=== PATIENT | female | born 1960 | race Caucasian/White ===

== ENCOUNTER → 2018-08-20 11:53 | Outpatient (CLI) | payer OTHER, SELFPAY ==
[2018-08-20 12:40] LABS: Hemoglobin A1C% w Est Avg Glu 6.8 % (4.0-6.0)
[2018-08-20 13:44] LABS: Thyroid Stimulating Hormone 2.68 uIU/mL (0.47-4.68)
== END ==
PROVIDERS: Family Provider Physician Assistant; PCP Physician Assistant; Visit Provider Naturopath
DX: E11.9 Type 2 diabetes mellitus without complications (principal)
CPT/HCPCS: 36415; 83036; 84443

== ENCOUNTER → 2018-11-16 08:21 | Outpatient (CLI) | payer OTHER, SELFPAY ==
[2018-11-16 10:51] LABS: Cholesterol 197 mg/dL (140-199); HDL Cholesterol 64 mg/dL (40-60); LDL Cholesterol Calculated 111 mg/dL (<100); Triglycerides 110 mg/dL (35-150)
[2018-11-16 11:06] LABS: Hemoglobin A1C% w Est Avg Glu 6.3 % (4.0-6.0)
== END ==
PROVIDERS: Visit Provider Naturopath
DX: E11.9 Type 2 diabetes mellitus without complications (principal)
CPT/HCPCS: 36415; 80061; 83036

== ENCOUNTER → 2019-02-18 09:14 | Outpatient (CLI) | payer OTHER, SELFPAY ==
[2019-02-18 10:08] LABS: Cholesterol 190 mg/dL (140-199); HDL Cholesterol 56 mg/dL (40-60); LDL Cholesterol Calculated 117 mg/dL (<100); Triglycerides 86 mg/dL (35-150)
[2019-02-18 10:49] LABS: Hemoglobin A1C% w Est Avg Glu 6.3 % (4.0-6.0)
== END ==
PROVIDERS: PCP Naturopath; Visit Provider Naturopath
DX: E11.9 Type 2 diabetes mellitus without complications (principal); E78.5 Hyperlipidemia, unspecified
CPT/HCPCS: 36415; 80061; 83036

== ENCOUNTER → 2019-10-31 07:07 | Outpatient (CLI) | payer OTHER, BC, SELFPAY ==
[2019-10-31 08:12] LABS: Add Manual Diff / Slide Review NO; Basophils Absolute Auto 100 /uL (0-100); Basophils Percent Auto 0.8 % (0-2); Eosinophils Absolute Auto 100 /uL (0-450); Eosinophils Percent Auto 0.9 % (2-4); Hematocrit 38.9 % (36-46); Hemoglobin 13.8 g/dL (12.0-16.0); Lymphocytes Absolute Auto 2000 /uL (1100-4500); Lymphocytes Percent Auto 26.4 % (25-40); Mean Corpuscular HGB Conc 35.5 % (30-36); Mean Corpuscular Hemoglobin 29.8 PG (26-34); Mean Corpuscular Volume 83.9 fL (80-100); Monocytes Absolute Auto 400 /uL (0-900); Monocytes Percent Auto 4.9 % (3-14); Neutrophils Absolute Auto 5100 /uL (1500-7000); Platelet Count 368 X10^3/uL (150-400); Red Blood Cell Count 4.64 X10^6/uL (4.0-5.2); Red Cell Distribution Width 13.2 % (11.6-14.8); White Blood Cell Count 7.6 X10^3/uL (4.5-11.0)
[2019-10-31 10:15] LABS: Alanine Aminotransferase 23 IU/L (<35); Albumin 4.5 g/dL (3.5-5.0); Albumin Globulin Ratio 1.4 (1.0-2.8); Alkaline Phosphatase 70 U/L (38-126); Aspartate Aminotransferase 30 IU/L (14-36); BUN Creatinine Ratio 27.5 (6-22); Bilirubin Total 0.7 mg/dL (0.2-1.3); Blood Urea Nitrogen 14 mg/dL (7-17); Calcium 9.8 mg/dL (8.4-10.2); Carbon Dioxide 24 mmol/L (22-32); Chloride 103 mmol/L (98-107); Cholesterol 207 mg/dL (140-199); Estimated Glomerular Filt Rate > 60.0 mL/min (>60); Globulin 3.2 g/dL (1.7-4.1); Glucose 152 mg/dL (80-110); HDL Cholesterol 56 mg/dL (40-60); HEMOLYSIS 16 (0-50); LDL Cholesterol Calculated 128 mg/dL (<100); Potassium 4.7 mmol/L (3.4-5.1); Sodium 139 mmol/L (137-145); Total Protein 7.7 g/dL (6.3-8.2); Triglycerides 116 mg/dL (35-150)
== END ==
PROVIDERS: PCP Naturopath; Referring Provider Naturopath; Visit Provider Naturopath
DX: Z00.00 Encounter for general adult medical examination without abnormal findings (principal); E11.9 Type 2 diabetes mellitus without complications; E78.5 Hyperlipidemia, unspecified; I10 Essential (primary) hypertension
CPT/HCPCS: 36415; 80053; 80061; 83036; 85025

== ENCOUNTER → 2019-11-22 10:54 | Outpatient (CLI) | payer OTHER, BC, SELFPAY ==
--- NOTE | 2019-11-22 12:35 | DIET.PN ---
Diabetes Intake: Initial Assessment Assess: Mrs. Khan is a 59 YOF referred for type 2 diabetes. She was diagnosed several years ago, and has tried to manage with low dose oral medication and exercise. Admits she is addicted to sugar, but has been able to maintain a controlled A1c with exercise. She walks 2 mi/day and yard work. Believes her health to be poor due to poor eating habits. She currently does not have a glucometer, but agrees to request a prescription to begin monitoring. She has had some previous diabetes education. Labs: Per pt report: A1c: 7.0 Meds: metformin 1000mg BID Diet: per 24 hr recall: B: 2 pc potato bread w/ pb and honey, oatmeal L: sandwich w/ chips D: protein, veg, potatoes Wt: 192# Ht: 63? BMI: 34 DX: Altered nutrition related laboratory values related to impaired glucose metabolism, lack of previous exposure to nutrition information as evidenced by pt report, diagnosis of diabetes, previous diet high in refined carbohydrates. Intervention: 1. Completed intake assessment. Discussed barriers to care. 2. Discussed pathophysiology of diabetes. Reviewed A1c and its correlation to blood glucose numbers. Discussed recommended BG ranges. 3. Discussed importance of self-monitoring, how often, and when to check. Reviewed use of glucometer. 4. Reviewed hyper/hypoglycemia and treatment. 5. Reviewed safe disposal of equipment (strip/lancets/insulin needles). 6. Created SMART goals for pt self-care and success. 7. Discussed program curriculum outline and class needs based on individual goals. SMART Goals: 1. Pt main goal is to learn how to be able to continue to enjoy her favorite foods with limitations. Monitor/Evaluate: Anticipate good compliance. Pt will attend full DSME program.
== END ==
PROVIDERS: PCP Naturopath; Referring Provider Naturopath; Visit Provider Naturopath
DX: E11.9 Type 2 diabetes mellitus without complications (principal); E66.9 Obesity, unspecified; Z79.84 Long term (current) use of oral hypoglycemic drugs; Z68.34 Body mass index [BMI] 34.0-34.9, adult; Z71.3 Dietary counseling and surveillance
CPT/HCPCS: G0108

== ENCOUNTER → 2019-11-28 10:05 | Outpatient (CLI) | payer OTHER, BC, SELFPAY ==
--- NOTE | 2019-11-28 12:12 | DIET.PN ---
Diabetes Physiology: Intervention 1. Diabetes physiology 2. Detecting and treatment of acute and chronic complications 3. Diagnosis of and difference in types of diabetes 4. Self-monitoring and pattern management a. Demonstrate glucometer and control testing b. Explain BG results and action to take when out of range. 5. Foot , eye, dental care 6. Medications a. Oral medication classification b. Injectable c. Insulin i. Injection protocol ii. Other delivery methods
== END ==
PROVIDERS: PCP Naturopath; Referring Provider Naturopath; Visit Provider Naturopath
DX: E11.9 Type 2 diabetes mellitus without complications (principal); Z71.3 Dietary counseling and surveillance
CPT/HCPCS: G0109

== ENCOUNTER → 2019-12-12 14:16 | Outpatient (CLI) | payer OTHER, BC, SELFPAY ==
--- NOTE | 2019-12-12 16:30 | DIET.PN ---
Diabetes: Healthy Eating 1 Intervention: ? Discussed pathophysiology of diabetes and impact of nutrition/diet on blood sugar control.? Discussed fed versus non-fed state.?? ? Reviewed importance of Balance, Variety, and Moderation. ? Discussed the effect of carbohydrates/protein/fat on blood sugar control.? ? Stressed importance of consistent carbohydrate intake at each meal and provided instructions for recommended servings/portions of carbohydrates/protein per meal. Provided educational material. ? Reviewed carbohydrate counting and measuring carbohydrate content via serving sizes and reading nutrition labels.? Provided handouts.?? ? Discussed the difference between simple versus complex carbohydrates and the effect of fiber on blood sugar control.? Discussed various methods to increase fiber content in diet. ? Discussed the plate method for creating more carbohydrate conscious balanced meals. ? Stressed importance of meal timing and not going >4-5 hours between meals. Encouraged adding protein to evening snack to support glucose control overnight. ? Discussed importance of making dietary habits part of lifestyle change.
== END ==
PROVIDERS: PCP Naturopath; Referring Provider Naturopath; Visit Provider Naturopath
DX: E11.9 Type 2 diabetes mellitus without complications (principal); Z71.3 Dietary counseling and surveillance
CPT/HCPCS: G0109

== ENCOUNTER → 2019-12-21 14:12 | Outpatient (CLI) | payer OTHER, BC, SELFPAY ==
--- NOTE | 2019-12-21 16:29 | DIET.PN ---
Diabetes: Healthy Eating 2 Intervention: Fats effects on glucose, weight, heart disease, cholesterol Sat Vs Unsat Protein- animal and plant based options Low, med, high fat meats Sugar substitutes Sodium Health claims Grocery shopping guidelines Eating away from home Alcohol Sick day guidelines Ketone Testing
== END ==
PROVIDERS: PCP Naturopath; Referring Provider Naturopath; Visit Provider Naturopath
DX: E11.9 Type 2 diabetes mellitus without complications (principal); Z71.3 Dietary counseling and surveillance
CPT/HCPCS: G0109

== ENCOUNTER → 2019-12-29 14:01 | Outpatient (CLI) | payer OTHER, BC, SELFPAY ==
--- NOTE | 2019-12-29 14:05 | DI.US.S_ITS ---
ULTRASOUND OF LEFT AXILLA: 12/29/2019 CLINICAL: Left axilla palpable lump. Comparison is made to exams dated: 01/24/2019 mammogram, 01/21/2018 mammogram, 01/21/2017 mammogram, 01/20/2016 mammogram, and 01/16/2015 mammogram - Breast [facility] ([place]). Color flow and real-time ultrasound of the left axilla were performed on the areas of interest. There is a 3.3 cm x 1.7 cm x 2.1 cm oval fluid collection in the left axillal. This oval fluid collection is hypoechoic but of mixed echogenicity with internal echoes and posterior acoustic enhancement. This correlates as palpated. Color flow imaging demonstrates that there is an adjacent vascularity. IMPRESSION: PROBABLY BENIGN The 3.3 cm x 1.7 cm x 2.1 cm oval fluid collection is consistent with an abscess. Aspiration or drainage are recommended. Findings were reported to Dr. Pérez at the conclusion of the study. Patient was transferred to the emergency room for evaluation with possible incision and drainage. A follow-up ultrasound in 3 months is recommended to exclude an underlying mass. This exam was interpreted at Station ID: [id number]. Electronically Signed By: Jefferson Stark M.D. [email or web address]/:12/29/2019 16:14:13 copy to: CLEMENTE PÉREZ letter sent: Clinical Evaluation Ultrasound BI-RADS: 3 Probably benign
== END ==
PROVIDERS: PCP Naturopath; Referring Provider Naturopath; Visit Provider Naturopath
DX: R22.32 Localized swelling, mass and lump, left upper limb (principal)
CPT/HCPCS: 76882

== ENCOUNTER 2019-12-29 15:27 | Emergency (ER) | payer OTHER, BC, SELFPAY ==
[2019-12-29 15:40] VITALS: BP 134/71; PULSE 75; RESP 18; TEMP 36.4; O2SAT 99; BMI 32.8
--- NOTE | 2019-12-29 18:21 | ED.SKABFB ---
HPI - Skin/Abscess/Foreign Bdy General Chief complaint: Skin/Abscess/Foreign Body Stated complaint: LEFT ARM UNDERNEATH INFECTION Time Seen by Provider: 12/29/19 18:21 Source: patient Mode of arrival: Ambulatory Limitations: no limitations History of Present Illness HPI narrative: 59-year-old woman with diabetes and high blood pressures notice some pain and tenderness in her left axilla. It has been developing over the past 3-4 days. She saw her primary care physician today who ordered an ultrasound. Ultrasound noted an abscess and she was sent to the emergency room for further evaluation. She reports no fevers, chills, cough, nausea, vomiting, diarrhea, abdominal pain, dizziness, syncope. She does note that she has had a similar infection approximately 10 years ago that responded nicely with oral antibiotics. Related Data Previous Rx's Medication Instructions Recorded cephalexin 500 mg PO TID #15 cap 12/29/19 Allergies Allergy/AdvReac Type Severity Reaction Status Date / Time No Known Drug Allergies Allergy Verified 12/29/19 15:40 Review of Systems Review of Systems Narrative: Remainder of review of systems including constitutional, ENT, cardiovascular, respiratory, GI, , musculoskeletal, skin, neurologic and psychiatric systems reviewed and are unremarkable except as noted in HPI. Patient History Medical History Hypertension (Acute) Type 2 diabetes mellitus (Acute) Social History Smoking Status: Never smoker eating out: rarely or never Type(s) of exercise: walking Smoking Status: Never smoker Substance Use Type: does not use Exam Narrative Exam Narrative: General: Healthy appearing, in no acute distress. Able to give a complete and coherent history. Well-nourished well-developed HEENT: Moist mucous membranes, normal sclera with reactive pupils, Neck: supple Chest: No chest wall tenderness. In the left axilla she has an approximately 4 x 5 cm fluctuant abscess with minor erythema superficially without spreading cellulitis. It appears to stem from a hair follicle Respiratory: Lungs are clear to auscultation, no wheezing no rales no rhonchi. Full and symmetrical air movement Cardiac: Regular rate and rhythm no murmurs no bruits Abdomen: Soft nontender good bowel tones, no flank pain Skin: Warm and dry, no rashes, well perfused Neurologic: Grossly neurologically intact with no obvious asymmetries or abnormalities Extremities: No trauma, Psych: Cooperative, appropriate insight and affect Initial Vital Signs Initial Vital Signs: Vital Signs Temperature 97.6 F 12/29/19 15:40 Pulse Rate 75 12/29/19 15:40 Respiratory Rate 18 12/29/19 15:40 Blood Pressure 134/71 12/29/19 15:40 Pulse Oximetry 99 12/29/19 15:40 Procedures Abscess I/D I&D #1: Site: other (Axilla) Side (if applicable): left Amount of anesthesia used (mL): 10 Technique: incised with #11 blade Amount of fluid expressed (mL): 10 Irrigation: Yes Packing used?: iodoform Complications: other (No complications, the there were 2 abscesses that were closed but not necessarily communicating too large pockets were incised with drainage from both.) Course Orders Ordered: ED Orders 12/29/19 19:40 Wound Culture and Gram Stain Stat Discontinued Medications Lidocaine/Sodium Bicarbonate (Buffered Lidocaine 10 Ml Syr) 10 ml INJ NOW ONE Stop: 12/29/19 18:30 Last Admin: 12/29/19 19:19 Dose: 10 ml Documented by: STEFANIA Vital Signs Vital signs: Vital Signs - 8 hr 12/29/19 15:40 Temperature 97.6 F Pulse Rate 75 Respiratory Rate 18 Blood Pressure 134/71 Pulse Oximetry 99 Discharge Plan Departure Patient Disposition: Home Clinical Impression: Abscess of skin or subcutaneous tissue Qualifiers: Site of cutaneous abscess: other site Qualified Code(s): L02.818 - Cutaneous abscess of other sites Instructions: DI for Skin Abscess Activity Restrictions/Additional Instructions: Thank you for coming in today Did have a moderate size abscess in your left axilla. I got approximately 10 cc of pus out of the area. Using 400 mg of ibuprofen (2 ddeq-ovu-yvucanr pills) and 1 Tylenol every 6 hours can be very helpful in controlling pain. You may find that your blood sugars are a bit easier control, sometimes with low-grade infections your sugars will go up. I did leave a small amount of packing in the wound. I would recommend simply pulling it out on Wednesday. You can do this while in the shower to cause the least amount of ?mess? The area was starting to get a bit inflamed and there was a bit of manipulation in getting to the to pockets that seem to be involved. I am going to suggest that he complete a 5 day course of Keflex to prevent any infection and make sure that this abscess heals completely. 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 If you develop fevers, recurrence of swelling at the area, spreading redness from the area or other signs or symptoms of infection or the site not healing, please return to the ER. I wish you well Prescriptions: New cephalexin 500 mg capsule 500 mg PO TID Qty: 15 RF: 0 Referrals: Sonia Yates ND [Primary Care Provider] -
[2019-12-29] MEDS: LIDO 1%/SOD BICARB 8.4% (10ML) 10 ML SYRINGE INJ (19:19)
[2019-12-29 19:56] VITALS: BP 127/65; PULSE 72; RESP 17; O2SAT 97
== END 2019-12-29 20:01 | disposition home or self-care (01) ==
PROVIDERS: Emergency Provider Emergency Medicine; PCP Naturopath
DX: L02.412 Cutaneous abscess of left axilla (principal); I10 Essential (primary) hypertension; E11.9 Type 2 diabetes mellitus without complications; R22.32 Localized swelling, mass and lump, left upper limb
CPT/HCPCS: 10060; 76882; 87070; 87075; 87077; 87186; 87205; 99283

== ENCOUNTER → 2020-01-04 14:11 | Outpatient (CLI) | payer OTHER, BC, SELFPAY ==
--- NOTE | 2020-01-04 16:30 | DIET.PN ---
Diabetes Exercise/Lifestyle change: 1. Importance of exercise 2. FITT (frequency, intensity, time, type) 3. Strength training tips and guidelines 4. Glucose monitoring/ranges before and after a. Carbohydrate needs based on glucose ranges and duration/intensity of exercise b. Rule of 15 5. Proper foot attire 6. Developing strategies for behavior change 7. SMART Goal Setting 8. Home exercise routine demonstration (as a class)
== END ==
PROVIDERS: PCP Naturopath; Referring Provider Naturopath; Visit Provider Naturopath
DX: E11.9 Type 2 diabetes mellitus without complications (principal); Z71.3 Dietary counseling and surveillance
CPT/HCPCS: G0109

== ENCOUNTER → 2020-01-09 13:53 | Outpatient (CLI) | payer OTHER, SELFPAY ==
--- NOTE | 2020-01-09 15:00 | DIET.PN ---
DIABETES Nutrition Initial Assessment:? ASSESS:?Mrs. Khan is a 59? yof??referred for type 2 diabetes seen as part of DSME program. She endorses changes in eating habits the last few months through reduced portion sizes and replacing high starchy items with protein and veggies. She is has also started walking in the morning as well as after dinner. She reports lower fasting blood glucose since adding protein snack in the evening and has been able to recognize reasons for hyperglycemic episodes. ??? LABS: Per pt report:? A1c 7.0 FB-151 2hrPP: ? MEDS:?? metformin 500mg am, 500mg lunch, 1000 mg pm ? DIET: Per 24-hour recall:? B: eggo waffle w/ syrup , 2 slices hanks L: ? sandwich, rest of tuna D: protein, veg, starch Sn: carrots, celery w/ PB; almonds; GF protein bar ([employer]); apples Eating Out: rarely Changes in Appetite: less hungry Nutrition Supplements: multivit, vit D ? Weight: 187# Height: 63? BMI: ?33.1 BP: 128/70 ? Exercise:? walking after dinner now instead of before NUTRITION DX 1. Altered Nutrition related labs related to impaired glucose metabolism, lack of previous exposure to accurate nutrition information as evidenced by pt report, dx of diabetes, previous diet high in refined carbohydrates.? INTERVENTION(s): 1. Reviewed pathophysiology of diabetes and impact of nutrition/diet on blood sugar control.? Discussed fed versus non-fed state.?? 2. Discussed the effect of carbohydrates/protein/fat on blood sugar control.? Stressed importance of consistent carbohydrate intake at each meal and provided instructions for recommended servings/portions of carbohydrates/protein per meal. Provided pt with educational material. 3. Reviewed carbohydrate counting and measuring carbohydrate content via serving sizes and reading nutrition labels.? Provided handouts.?? 4. Discussed the difference between simple versus complex carbohydrates and the effect of fiber on blood sugar control.? Discussed various methods to increase fiber content in diet. 5. Stressed importance of meal timing and not going >4-5 hours between meals. Encouraged adding protein to evening snack to support glucose control overnight. Patient agreeable. 6. Discussed healthy weight loss goals of 1-2lbs per week through diet and exercise.? Pt agreeable to walking at least 30 minutes daily. 7. Recommend monitoring fasting and alternating 2 hr PP mealtime glucose. MONITOR/EVALUATE: Anticipate good compliance.?Follow-up scheduled for 1 month.
[2020-01-09 15:01] VITALS: BMI 33.1
== END ==
PROVIDERS: PCP Naturopath; Referring Provider Naturopath; Visit Provider Naturopath
DX: E11.9 Type 2 diabetes mellitus without complications (principal); E66.9 Obesity, unspecified; Z68.33 Body mass index [BMI] 33.0-33.9, adult; Z71.3 Dietary counseling and surveillance; Z79.84 Long term (current) use of oral hypoglycemic drugs
CPT/HCPCS: G0109

== ENCOUNTER → 2020-03-09 09:15 | Outpatient (CLI) | payer OTHER, SELFPAY ==
[2020-03-09 10:26] LABS: Hemoglobin A1C% w Est Avg Glu 6.3 % (4.0-6.0)
== END ==
PROVIDERS: PCP Naturopath; Referring Provider Naturopath; Visit Provider Naturopath
DX: E11.9 Type 2 diabetes mellitus without complications (principal)
CPT/HCPCS: 36415; 83036

== ENCOUNTER → 2020-11-05 14:47 | Outpatient (ROUT) | payer OTHER, BC, SELFPAY ==
[2020-11-05 14:50] LABS: RBC Urine None Seen (0-5/HPF)
[2020-11-05 14:58] LABS: Bilirubin Urine UA NEGATIVE (NEGATIVE); Color Urine UA YELLOW; Glucose Urine UA NEGATIVE (Negative); Ketones Urine UA NEGATIVE (NEGATIVE); Leukocyte Esterase Urine UA 1+ (NEGATIVE); Nitrite Urine UA NEGATIVE (Negative); Occult Blood Urine UA NEGATIVE (Negative); Protein Urine UA NEGATIVE (Negative); Urobilinogen Urine UA 0.2 E.U./dL (0.2)
[2020-11-05 15:09] LABS: Appearance Urine UA Slightly Cloudy; WBC Urine 5-10/HPF (0-5/HPF)
[2020-11-05 15:10] LABS: Bacteria Urine Occasional (0-1); Culture Indicated Urine Specimen Cultured; Squamous Epithelial Cell Urine 0-1 /HPF (0-5/HPF)
== END ==
PROVIDERS: PCP Naturopath; Visit Provider Naturopath
DX: N39.0 Urinary tract infection, site not specified (principal)
CPT/HCPCS: 81001; 87077; 87086; 87186

== ENCOUNTER → 2020-12-31 06:52 | Outpatient (CLI) | payer OTHER, BC, SELFPAY ==
[2020-12-31 08:40] LABS: Hemoglobin A1C% w Est Avg Glu 6.7 % (4.0-6.0)
[2020-12-31 08:46] LABS: Alanine Aminotransferase 30 IU/L (<35); Albumin 4.4 g/dL (3.5-5.0); Albumin Globulin Ratio 1.5 (1.0-2.8); Alkaline Phosphatase 68 U/L (38-126); Aspartate Aminotransferase 31 IU/L (14-36); BUN Creatinine Ratio 24.6 (6-22); Bilirubin Total 0.6 mg/dL (0.2-1.3); Blood Urea Nitrogen 14 mg/dL (7-17); Calcium 9.3 mg/dL (8.4-10.2); Carbon Dioxide 28 mmol/L (22-32); Chloride 102 mmol/L (98-107); Cholesterol 195 mg/dL (140-199); Estimated Glomerular Filt Rate > 60.0 mL/min (>60); Glucose 146 mg/dL (80-110); HDL Cholesterol 57 mg/dL (40-60); HEMOLYSIS < 15 (0-50); LDL Cholesterol Calculated 124 mg/dL (<100); Potassium 3.9 mmol/L (3.4-5.1); Sodium 139 mmol/L (137-145); Total Protein 7.4 g/dL (6.3-8.2); Triglycerides 69 mg/dL (35-150)
[2020-12-31 08:49] LABS: Add Manual Diff / Slide Review NO; Basophils Absolute Auto 0 /uL (0-100); Basophils Percent Auto 0.5 % (0-2); Eosinophils Absolute Auto 0 /uL (0-450); Hematocrit 38.6 % (36-46); Hemoglobin 13.3 g/dL (12.0-16.0); Lymphocytes Absolute Auto 1500 /uL (1100-4500); Lymphocytes Percent Auto 22.4 % (25-40); Mean Corpuscular HGB Conc 34.4 % (30-36); Mean Corpuscular Volume 84.3 fL (80-100); Monocytes Absolute Auto 300 /uL (0-900); Monocytes Percent Auto 4.4 % (3-14); Neutrophils Absolute Auto 4800 /uL (1500-7000); Neutrophils Percent Auto 72.7 % (50-75); Platelet Count 349 X10^3/uL (150-400); Red Blood Cell Count 4.57 X10^6/uL (4.0-5.2); Red Cell Distribution Width 13.2 % (11.6-14.8); White Blood Cell Count 6.6 X10^3/uL (4.5-11.0)
== END ==
PROVIDERS: Referring Provider Naturopath; Visit Provider Naturopath
DX: Z00.00 Encounter for general adult medical examination without abnormal findings (principal); E11.9 Type 2 diabetes mellitus without complications; I10 Essential (primary) hypertension; E78.5 Hyperlipidemia, unspecified
CPT/HCPCS: 36415; 80053; 80061; 83036; 85025

== ENCOUNTER → 2021-04-25 09:01 | Outpatient (CLI) | payer OTHER, SELFPAY ==
[2021-04-25 10:15] LABS: Hemoglobin A1C% w Est Avg Glu 6.6 % (4.0-6.0)
== END ==
PROVIDERS: Referring Provider Naturopath; Visit Provider Naturopath
DX: E11.9 Type 2 diabetes mellitus without complications (principal)
CPT/HCPCS: 36415; 83036

== ENCOUNTER → 2022-01-22 08:58 | Outpatient (CLI) | payer OTHER, SELFPAY ==
[2022-01-22 11:17] LABS: Add Manual Diff / Slide Review NO; Basophils Absolute Auto 0 /uL (0-100); Basophils Percent Auto 0.5 % (0-2); Eosinophils Absolute Auto 0 /uL (0-450); Eosinophils Percent Auto 0.1 % (2-4); Hematocrit 37.9 % (36-46); Hemoglobin 13.1 g/dL (12.0-16.0); Lymphocytes Absolute Auto 1700 /uL (1100-4500); Lymphocytes Percent Auto 24.3 % (25-40); Mean Corpuscular HGB Conc 34.6 % (30-36); Mean Corpuscular Volume 83.9 fL (80-100); Monocytes Absolute Auto 400 /uL (0-900); Monocytes Percent Auto 5.3 % (3-14); Neutrophils Absolute Auto 4900 /uL (1500-7000); Neutrophils Percent Auto 69.8 % (50-75); Platelet Count 331 X10^3/uL (150-400); Red Blood Cell Count 4.52 X10^6/uL (4.0-5.2); Red Cell Distribution Width 13.3 % (11.6-14.8); White Blood Cell Count 7.1 X10^3/uL (4.5-11.0)
[2022-01-22 11:31] LABS: Hemoglobin A1C% w Est Avg Glu 7.1 % (4.0-6.0)
[2022-01-22 11:43] LABS: Alanine Aminotransferase 35 IU/L (<35); Albumin 4.3 g/dL (3.5-5.0); Albumin Globulin Ratio 1.5 (1.0-2.8); Alkaline Phosphatase 60 U/L (38-126); Aspartate Aminotransferase 30 IU/L (14-36); BUN Creatinine Ratio 25.8 (6-22); Bilirubin Total 0.6 mg/dL (0.2-1.3); Blood Urea Nitrogen 16 mg/dL (7-17); Calcium 9.4 mg/dL (8.4-10.2); Carbon Dioxide 27 mmol/L (22-32); Chloride 102 mmol/L (98-107); Cholesterol 180 mg/dL (140-199); Estimated Glomerular Filt Rate > 60 mL/min (>60); Globulin 2.8 g/dL (1.7-4.1); Glucose 139 mg/dL (80-110); HDL Cholesterol 59 mg/dL (40-60); HEMOLYSIS < 15 (0-50); LDL Cholesterol Calculated 107 mg/dL (<100); Potassium 4.6 mmol/L (3.4-5.1); Sodium 137 mmol/L (137-145); Total Protein 7.1 g/dL (6.3-8.2); Triglycerides 70 mg/dL (35-150)
== END ==
PROVIDERS: PCP Naturopath; Referring Provider Naturopath; Visit Provider Naturopath
DX: Z00.00 Encounter for general adult medical examination without abnormal findings (principal); E11.9 Type 2 diabetes mellitus without complications; E78.5 Hyperlipidemia, unspecified
CPT/HCPCS: 36415; 80053; 80061; 83036; 85025

== ENCOUNTER → 2022-08-08 07:43 | Outpatient (CLI) | payer OTHER, SELFPAY ==
[2022-08-08 09:35] LABS: Alanine Aminotransferase 40 IU/L (<35); Albumin 4.5 g/dL (3.5-5.0); Albumin Globulin Ratio 1.6 (1.0-2.8); Alkaline Phosphatase 69 U/L (38-126); Aspartate Aminotransferase 30 IU/L (14-36); Bilirubin Total 0.9 mg/dL (0.2-1.3); Bilirubin Unconjugated 0.6 mg/dL (0.0-1.1); Globulin 2.9 g/dL (1.7-4.1); Glucose 162 mg/dL (80-110); HEMOLYSIS < 15 (0-50); Total Protein 7.4 g/dL (6.3-8.2)
[2022-08-08 11:42] LABS: Hemoglobin A1C% w Est Avg Glu 7.7 % (4.0-6.0)
== END ==
PROVIDERS: PCP Naturopath; Referring Provider Naturopath; Visit Provider Naturopath
DX: E11.9 Type 2 diabetes mellitus without complications (principal); R74.8 Abnormal levels of other serum enzymes
CPT/HCPCS: 36415; 80076; 82947; 83036

== ENCOUNTER → 2022-10-13 14:57 | Outpatient (CLI) | payer OTHER, SELFPAY ==
--- NOTE | 2022-10-29 10:10 | DIAB.MNT ---
Initial Diabetes Medical Nutrition Therapy Assessment Name: Hannah Khan Date: 10/13/22 Time: 340-5p Dx: Type II Diabetes Provider: Milan Gaines presents for initial DM visit. Completed previous [facility] DM program with classes and 1:1 visits. Describes feelings of diabetes fatigue/distress. Stopped checking BG and reports feeling very overwhelmed by managing DM. +FH of DM with mother, maternal grandmother and sister. Recent hgA1c of 7.7%. Would like to focus mostly on nutrition today. Reports frequent diarrhea symptoms. Taking Magnesium, she is unsure why. Might be exacerbating diarrhea. 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 Her work schedule/driving is a big factor in her eating schedule per report. Reports often feeling very hungry by the time dinner comes, which is likely due to skipping pm snack. Some difficulty sticking to Metformin schedule of TID versus BID. Diet Recall: 6a: frosted flakes 2c with original almond milk OR 1 med pancake with syrup and 3-4 hanks 10a: cheese and crackers balance break kit 12p: 0.5-1 sandwich (beef bologna on potato wheat bread) 5-630p: meat and potato salad OR cereal OR 1/3c pasta with meat sauce, green beans OR eat out 2x per week sn: right after dinner, 4x licorice OR 2x Reeces yudith stix Beverages: 80oz water, crystal light, ICE sf beverages no soda/juice Anthropometrics: Ht: 63 Wt: 190# reported Physical Activity: walks dogs daily for 45 min Self-Monitoring Blood Glucose: None. Brought meter today for refresher education. BG in clinic was 116mg/dl hours after lunch (pre dinner reading). Diabetes Medications: Metformin 500mg at breakfast, lunch, and 1000mg dinner (Rx per referral: 500mg 4x per day) Pertinent Labs: hgA1c 7/7% (per provider notes) 07/2022: glucose 162mg/dl H ALT: 40 H Past Medical History: (Last Reviewed 10/15/22 @ 20:12 by Britt Carranza PA-C) Hypertension Type 2 diabetes mellitus Nutrition Rx: Carbohydrates: Meal:45g Snack:15-30g Nutrition Diagnosis: - Excessive CHO intake r/t nutrition knowledge deficit and breakfast choices aeb diet recall - Inconsistent energy intake r/t no snack in pm aeb diet recall and pt reporting excessive hunger at dinner - Self monitoring deficit r/t no SMBG aeb pt report Intervention: This participant was very receptive. Provided appropriate educational handouts. Discussed the following topics: Completed intake assessment. Pathophysiology of T2DM HgA1c, its correlation to blood glucose numbers, and rationale for goal Self monitoring BG review and BG goals and times to check Plate Method, impact of macronutrients on blood sugar, meal timing, carbohydrate counting, pairing macronutrients and spreading out carbohydrates for better blood glucose management Recommended servings for carbohydrates at meals and snacks [facility] nutrition Brainstormed appropriate meal plan based on food preferences Role of physical activity Medication education: Metformin action and potential for taking BID Diarrhea MNT Diabetes distress and management Created SMART goals for patient self-care and success. Goals: Trial Metformin 1000mg BID Check BG Add pm snack at 230p Follow-up: ADELINE LACKEY follow-up in 3-4 weeks Tanisha Kerr RDN, DARYA Certified Diabetes Care and Laboratory Mechanic Helper P: [phone] Thank you for this referral
== END ==
PROVIDERS: Absent Provider Naturopath; Family Provider Naturopath; PCP Naturopath; Referring Provider Naturopath; Visit Provider Naturopath
DX: E11.9 Type 2 diabetes mellitus without complications (principal); I10 Essential (primary) hypertension; Z00.00 Encounter for general adult medical examination without abnormal findings; Z79.84 Long term (current) use of oral hypoglycemic drugs; Z71.3 Dietary counseling and surveillance
CPT/HCPCS: 97802

== ENCOUNTER → 2022-10-15 17:09 | Outpatient (CLI) | payer OTHER, SELFPAY | PROVIDERS: Family Provider Naturopath; PCP Naturopath; Visit Provider Student in an Organized Health Care Education/Training Program | DX: N39.0 Urinary tract infection, site not specified (principal) | CPT/HCPCS: 87077; 87086; 87186 ==

== ENCOUNTER → 2022-11-03 15:18 | Outpatient (CLI) | payer OTHER, SELFPAY ==
--- NOTE | 2022-11-19 09:44 | DIAB.MNTFU ---
Follow-up Diabetes Medical Nutrition Therapy Assessment Name: Hannah Khan Date: 11/03/22 Time: 330-415p Dx: Type II Diabetes Liana presents for follow-up DM visit. Reports continued diarrhea, though d/c of Mg has helped some with frequency. Sometimes forgets afternoon snack. Diet recall indicates portions within recommendations, though some low veggie intake during the day. Taking Metformin 1000mg BID, which seems to be easier for her schedule. Diet recall: 6a: 1c cereal with almond milk 10a: balance break 12p: sandwich Sn: nothing or 1-2 pieces candy 5-6p: chicken and half roll with salad OR burger with veg and cheese no bun Anthropometrics: Ht: 63 Wt: 190# reported Physical Activity: walks dogs daily for 45 min Self-Monitoring Blood Glucose: Checking FBG and some postprandial readings. Previous to this week FBG continue to show elevations. Postprandial readings range from 127-263mg/dl. Date Pre Post Pre Post Pre Post HS 10/27 183 239 259 213 165 10/29 180 143 157 6/2 168 3 159 6/4 182 6/5 171 6/6 180 135 Diabetes Medications: Metformin 1000mg BID (Rx per referral: 500mg 4x per day) Pertinent Labs: hgA1c 7/7% (per provider notes) 07/2022: glucose 162mg/dl H ALT: 40 H Past Medical History: (Last Reviewed 10/15/22 @ 20:12 by Britt Carranza PA-C) Hypertension Type 2 diabetes mellitus Nutrition Rx: Carbohydrates: Meal:45g Snack:15-30g Nutrition Diagnosis: - Excessive CHO intake r/t nutrition knowledge deficit and breakfast choices aeb diet recall- improved - Inconsistent energy intake r/t no snack in pm aeb diet recall and pt reporting excessive hunger at dinner- in progress - Self monitoring deficit r/t no SMBG aeb pt report - improved - Predicted inadequate fiber intake r/t limited veggie intake during day aeb diet recall- new Intervention: This participant was very receptive. Provided appropriate educational handouts. Discussed the following topics: Blood sugar review and trends. Impact of food intake and DM pathophysiology on results. Meal planning and carb counting review Physical activity plan and progress Incorporating veggies into the day BG goals Created SMART goals for patient self-care and success. Goals: Trial Metformin 1000mg BID- met Check BG - met Add pm snack at 230p- in progress Add salad to dinner consistently- new Try to bring snacking veggies to work- new Discuss BG with provider- new Follow-up: ADELINE LACKEY follow-up recommended. This RD/DARYA will be on leave until Mar. Scheduled f/u at that time, however discussed potential resources for support in the interim. Tanisha Kerr RDN, DARYA Certified Diabetes Care and Salt Manager P: [phone] Thank you for this referral
== END ==
PROVIDERS: Family Provider Naturopath; PCP Naturopath; Referring Provider Naturopath; Visit Provider Naturopath
DX: E11.9 Type 2 diabetes mellitus without complications (principal); Z79.84 Long term (current) use of oral hypoglycemic drugs; Z71.3 Dietary counseling and surveillance
CPT/HCPCS: 97803

== ENCOUNTER → 2025-03-29 08:26 | Outpatient (CLI) | payer OTHER, SELFPAY ==
--- NOTE | 2025-03-29 08:28 | DI.CT.S_ITS ---
PROCEDURE: CT KIDNEY URETER BLADDER (KUB) INDICATIONS: hematuria, back pain TECHNIQUE: CT of the abdomen and pelvis was obtained without intravenous contrast. Coronal and sagittal reformats were performed. For radiation dose reduction, the following was used: automated exposure control, adjustment of mA and/or kV according to patient size. COMPARISON: None. FINDINGS: Image quality: Diagnostic. Lower Chest: No significant findings. ABDOMEN: Liver: No contour-deforming mass. Gallbladder: Status post cholecystectomy Biliary ducts: No biliary dilation. Pancreas: There is a lesion arising from the pancreatic head measuring 7.3 x 5.3 x 5.23 cm. This appears to be of low density, containing several irregular calcifications. Spleen: Size is within normal limits. Adrenal Glands: No adrenal nodules. Kidneys and Ureters: There is a 8 x 6 millimeter stone in the lower pole of the left kidney, attenuation values of 1349 Hounsfield units. There is also a elongated calculus in the lower pole of the right renal pelvis measuring 2.34 cm in craniocaudal extent and up to 1 cm in thickness. Attenuation values of 1388 Hounsfield units. Stomach and Bowel: Normal colonic caliber, without significant wall thickening. Peritoneum: No abnormal intraperitoneal fluid. No free air. Ventral Wall: No significant hernia. Abdominal Nodes: No retroperitoneal or mesenteric adenopathy by size criteria. Vessels: Aorta and inferior vena cava are normal in size. PELVIS: Pelvic Organs: Unremarkable. Bladder: Unremarkable. Pelvic Nodes: No enlarged lymph nodes. Miscellaneous: No inguinal hernias are seen. Bones: No aggressive osseous abnormality. IMPRESSION: 1. Bilateral nonobstructing renal calculi as described. No ureteral calculi or signs of obstructive uropathy. 2. 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 Better assessment can be performed with MRI. Dictated by: Jeovany Feliz M.D. on 03/29/2025 at 15:43 Approved by: Jeovany Feliz M.D. on 03/29/2025 at 15:49
== END ==
LOC: CT 08:28
PROVIDERS: Family Provider Naturopath; PCP Family Medicine; Referring Provider Family Medicine; Visit Provider Family Medicine
DX: K86.9 Disease of pancreas, unspecified (principal); N20.0 Calculus of kidney; R31.9 Hematuria, unspecified; Z90.49 Acquired absence of other specified parts of digestive tract
CPT/HCPCS: 74176

== ENCOUNTER → 2025-04-27 07:30 | Outpatient (CLI) | payer OTHER, SELFPAY ==
--- NOTE | 2025-04-27 07:33 | DI.MRI.S_ITS ---
PROCEDURE: MR AB PANCREATIC/MRCP PROTOCOL INDICATIONS: cystic mass of pancreas TECHNIQUE: Coronal HASTE through the abdomen, axial 2-D FLASH in- and [id number], and breath-hold T2 FSE with fat saturation through the biliary system and pancreas. Oblique coronal and axial thin-slice HASTE, radial thick-slab HASTE centered on the extrahepatic bile ducts. Intravenous secretin: Not requested. COMPARISON: [facility], CT, CT KIDNEY URETER BLADDER (KUB), 03/29/2025, 8:37. FINDINGS: Image quality: Diagnostic. Gallbladder: Not visualized reportedly post-cholecystectomy. Biliary ducts: No biliary dilation. Pancreas: The complex masslike structure at pancreatic head is better visualized with reference to the prior noncontrast CT KUB from 03/29/25. Again noted is a large cystic mass, multi cystic, with maximal AP and transverse dimension of 5.6 x 5.6 cm and with maximal craniocaudad dimension of 7.5 cm. The enhancing components are comprised of innumerable thin septations surrounding individual innumerable small cystic structures containing fluid signal which does not enhance. This structure appears to impinge on the course of the main pancreatic duct which is abnormally dilated over the pancreatic body and tail to 7-8 mm. No additional pancreatic cystic or solid mass is found. OTHER: Lung bases: Unremarkable. Liver: No solid mass. Spleen: Size is within normal limits. Adrenal Glands: No adrenal nodules. Kidneys and Ureters: No hydronephrosis except slight dilatation of the lower 3rd right renal collecting system associated with previously documented moderate-sized calcifications in that area. Additional calcifications without collecting system dilatation are seen at the lower 3rd of the left kidney, also seen on prior CT KUB. No solid mass. No complex renal cystic lesion which requires follow up. Stomach and Bowel: Normal colonic caliber, without significant wall thickening. Peritoneum: No abnormal intraperitoneal fluid. No free air. Ventral Wall: No hernia. Abdominal Nodes: No retroperitoneal or mesenteric adenopathy by size criteria. Vessels: Aorta and inferior vena cava are normal in size. Bones: No aggressive osseous abnormality. IMPRESSION: Large pancreatic head multi cystic mass with enhancing thin septations surrounding each individual innumerable cystic component. This impinges on the main pancreatic duct causing a more proximal ductal dilatation across the pancreatic body and tail. 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 There is no evidence of distant metastatic disease, invasion into adjacent structures, or regional adenopathy. Dictated by: Clayton Weathers M.D. on 04/27/2025 at 11:59 Approved by: Clayton Weathers M.D. on 04/27/2025 at 12:19
== END ==
LOC: MRI 07:32
PROVIDERS: Family Provider Naturopath; PCP Family Medicine; Referring Provider Family Medicine; Visit Provider Family Medicine
DX: K86.2 Cyst of pancreas (principal); K86.89 Other specified diseases of pancreas
CPT/HCPCS: 74183; A9579